=== PATIENT | male | born 1945 | race Caucasian/White ===

== ENCOUNTER 2021-09-18 09:44 | Outpatient (CLI) | payer MEDICARE, OTHER ==
[2021-09-18] MEDS ORDERED: Magnevist 469MG/ML 20 ML VIAL ONE (10:28)
== END 2021-09-18 09:45 | disposition home or self-care (01) ==
LOC: CSHSPEC 09:44
PROVIDERS: ATTEND Family Medicine
DX: M47.27 Other spondylosis with radiculopathy, lumbosacral region (principal); M47.816 Spondylosis without myelopathy or radiculopathy, lumbar region; M48.061 Spinal stenosis, lumbar region without neurogenic claudication; Z95.9 Presence of cardiac and vascular implant and graft, unspecified
CPT/HCPCS: 71045; 72158; 82565; A9579

== ENCOUNTER 2021-09-25 12:07 | Outpatient (CLI) | payer MEDICARE, OTHER | END 2021-09-25 12:08 | disposition home or self-care (01) | LOC: CSHULT 12:07 | PROVIDERS: ATTEND Otolaryngology Plastic Surgery within the Head & Neck | DX: E04.1 Nontoxic single thyroid nodule (principal); E07.9 Disorder of thyroid, unspecified | CPT/HCPCS: 76536 ==

== ENCOUNTER 2022-10-06 08:09 | Outpatient (CLI) | payer MEDICARE, OTHER ==
[2022-10-06 09:23] LABS: Hematocrit 40.7 % (38.8-50.0); Hemoglobin 13.8 g/dL (13.5-17.5); Mean Corpuscular HGB CONC 33.9 g/dL (32.0-36.0); Mean Corpuscular Hemoglobin 31.4 pg (27.0-33.0); Mean Corpuscular Volume 92.7 fl (81.2-95.1); Mean Platelet Volume 9.6 fl (7.4-10.4); Platelet Count 189 10x3/uL (150-450); RBC Distribution Width 13.6 % (11.5-14.5); Red Blood Cell (RBC) Count 4.39 10x6/uL (4.32-5.72)
[2022-10-06 09:55] LABS: Anion Gap 16 mmol/L (10-20); BUN (Urea Nitrogen) 18 mg/dL (8.4-25.7); Calc. Creatinine Clearance 0 mL/min (70-130); Carbon Dioxide 21 mmol/L (23-31); Chloride 109 mmol/L (98-107); Estimated GFR 74; Glucose 57 mg/dL (83-110); Potassium 4.4 mmol/L (3.5-5.1); Sodium 142 mmol/L (136-145)
== END 2022-10-06 08:10 | disposition home or self-care (01) ==
LOC: CSHLAB 08:09
PROVIDERS: ATTEND Otolaryngology Plastic Surgery within the Head & Neck
DX: Z01.812 Encounter for preprocedural laboratory examination (principal); E07.89 Other specified disorders of thyroid; J38.01 Paralysis of vocal cords and larynx, unilateral
CPT/HCPCS: 80048; 85027

== ENCOUNTER 2022-10-11 05:39 | Observation (INO) | payer MEDICARE, OTHER ==
[2022-10-06 08:57] VITALS: BMI 34.2
[2022-10-11] MEDS ORDERED: CEFAZOLIN 2 GM VIAL ONE (06:19)
[2022-10-11] MEDS ORDERED: Lidocaine 1% w/Epinephrine 1:100K 20 ML VIAL ONE (06:21)
[2022-10-11] MEDS ORDERED: Dexmedetomidine 200 MCG/2 ML VIAL ONE (06:25)
[2022-10-11] MEDS ORDERED: Famotidine/PF 20 mg/2ml Vial ONE (06:25)
[2022-10-11] MEDS ORDERED: SUGAMMADEX SODIUM 200 MG/2 ML VIAL ONE (06:25)
[2022-10-11] MEDS ORDERED: MINERAL OIL/WHITE PETROLATUM 3.5 GM TUBE ONE (06:32)
[2022-10-11] MEDS ORDERED: PROPOFOL 20 ML ONE (06:33)
[2022-10-11] MEDS ORDERED: fentaNYL 50 mcg/mL 1 mL Vial ONE (06:33)
[2022-10-11] MEDS ORDERED: Lidocaine 1% PF 5 ML VIAL ONE (06:36)
[2022-10-11] MEDS ORDERED: Rocuronium Bromide 10 MG/ML (10ML VIAL) ONE (06:36)
[2022-10-11] MEDS ORDERED: ePHEDrine Sulfate 50 MG/10 ML VIAL ONE (07:26)
[2022-10-11] MEDS ORDERED: Phenylephrine 10 MG/ML VIAL ONE (07:44)
[2022-10-11] MEDS ORDERED: KETAMINE 100 MG/ML (5ML VIAL) ONE (07:44)
[2022-10-11] MEDS ORDERED: Norepinephrine 4 MG/4 ML VIAL ONE (07:45)
[2022-10-11] MEDS ORDERED: Acetaminophen 325 MG TAB PO PRN (09:49)
[2022-10-11] MEDS ORDERED: HYDROcodone/Acetaminophen 7.5/325 mg Tablet PO PRN (09:49)
[2022-10-11] MEDS ORDERED: Ondansetron PF 4 MG/2 ML Vial IVP PRN (09:49)
[2022-10-11] MEDS ORDERED: Glucagon 1 MG/ML KIT IM PRN (11:45)
[2022-10-11] MEDS ORDERED: Dextrose 5% in Water 1,000 ML IV PRN (11:45)
[2022-10-11] MEDS ORDERED: Dextrose 50% Abboject 50 ML SYRINGE IVP PRN (11:45)
[2022-10-11] MEDS ORDERED: OMEGA ACID ETHYL ESTERS PO SCH (12:00)
[2022-10-11] MEDS ORDERED: Morphine 4 MG/ML VIAL SLOW IVP PRN (15:02)
[2022-10-11] MEDS: Carvedilol 25 MG TAB PO SCH (20:56)
[2022-10-11] MEDS: Sacubitril 49 MG/Valsartan 51 MG TABLET PO SCH (20:57)
[2022-10-11] MEDS ORDERED: Rosuvastatin 10 MG TAB PO SCH (21:00)
[2022-10-11] MEDS ORDERED: HumuLIN 70/30 (300 UNITS/3 ML VIAL) SC SCH (21:00)
[2022-10-11] MEDS ORDERED: Aspirin 81 mg Enteric Coated Tablet PO SCH (21:00)
[2022-10-11] MEDS: HumaLOG 300 UNITS/3 ML VIAL SC PRN (21:07)
[2022-10-11] MEDS: HYDROcodone/Acetaminophen 5/325 mg Tablet PO PRN (21:08)
[2022-10-12] MEDS: HYDROcodone/Acetaminophen 5/325 mg Tablet PO PRN (03:01)
[2022-10-12] MEDS: HumaLOG 300 UNITS/3 ML VIAL SC PRN (05:36)
[2022-10-12] MEDS ORDERED: Levothyroxine Sodium 100 MCG TAB PO SCH (06:00)
[2022-10-12] MEDS ORDERED: Dexamethasone 20 MG/5 ML VIAL SLOW IVP ONE (06:00)
[2022-10-12] MEDS ORDERED: Dexamethasone 20 MG, Admixture Fee 1 EACH in Sodium Chloride 0.9% 50 ML IVPB SCH (06:00)
[2022-10-12] MEDS ORDERED: Cholecalciferol 1,000 UNITS (25 MCG) TAB PO SCH (09:00)
[2022-10-12] MEDS ORDERED: Multivit, Therapeutic 1 TAB PO SCH (09:00)
[2022-10-12] MEDS ORDERED: Oxybutynin ER 5 MG TAB PO SCH (09:00)
[2022-10-12 09:42] VITALS: BP 129/60; TEMP 98.2
[2022-10-12] MEDS: Sacubitril 49 MG/Valsartan 51 MG TABLET PO SCH ×2 (10:20→10:21)
[2022-10-12] MEDS: Carvedilol 25 MG TAB PO SCH (10:21)
== END 2022-10-12 10:40 | disposition home or self-care (01) ==
LOC: CSHSDC 05:39 → CSHTELE 12:02
PROVIDERS: ADMIT Otolaryngology Plastic Surgery within the Head & Neck; ATTEND Otolaryngology Plastic Surgery within the Head & Neck
PROC: 0GTG0ZZ Resection of Left Thyroid Gland Lobe, Open Approach (ICD-10-PCS; principal; 2022-10-11)
DX: E07.9 Disorder of thyroid, unspecified (principal); J38.00 Paralysis of vocal cords and larynx, unspecified; H26.9 Unspecified cataract; G47.30 Sleep apnea, unspecified; I25.10 Atherosclerotic heart disease of native coronary artery without angina pectoris; I25.2 Old myocardial infarction; E11.9 Type 2 diabetes mellitus without complications; Z79.01 Long term (current) use of anticoagulants; Z79.890 Hormone replacement therapy; Z79.82 Long term (current) use of aspirin; Z79.899 Other long term (current) drug therapy; Z79.02 Long term (current) use of antithrombotics/antiplatelets; Z79.4 Long term (current) use of insulin; Z95.1 Presence of aortocoronary bypass graft; Z95.0 Presence of cardiac pacemaker
CPT/HCPCS: 60220; 82962 ×2; 94760 ×2; J3010; 36416; 88307; 88311; 88331; 88332; 88341; 88342; J1100; J1815; J2270; J2370; J2704; S0028

== ENCOUNTER 2022-10-19 08:31 | Inpatient (IN) | payer MEDICARE, OTHER ==
[2022-10-19 09:44] LABS: #Eosinphils 0.2 10x3/uL (0.0-0.5); #Monocytes 1.4 10x3/uL (0.0-1.1); #Neutrophils 4.7 10x3/uL (1.5-8.4); %Basophils 0.1 % (0.0-2.0); %Eosinophils 2.1 % (0.0-6.0); %Lymphocytes 24.7 % (18.0-47.0); %Monocytes 16.3 % (0.0-10.0); %Neutrophils 56.3 % (40.0-75.0); Hematocrit 40.2 % (38.8-50.0); Hemoglobin 13.4 g/dL (13.5-17.5); Mean Corpuscular HGB CONC 33.3 g/dL (32.0-36.0); Mean Corpuscular Hemoglobin 31.1 pg (27.0-33.0); Mean Corpuscular Volume 93.3 fl (81.2-95.1); Mean Platelet Volume 9.4 fl (7.4-10.4); Platelet Count 221 10x3/uL (150-450); RBC Distribution Width 13.7 % (11.5-14.5); Red Blood Cell (RBC) Count 4.31 10x6/uL (4.32-5.72); White Blood Cell (WBC) Count 8.4 10x3/uL (3.5-10.5)
[2022-10-19 09:54] LABS: PTT 24.5 sec (22.0-33.0); Prothrombin Time 10.9 sec (9.5-12.1)
[2022-10-19 10:16] LABS: ALT (SGPT) 89 U/L (8-55); AST (SGOT) 59 U/L (5-34); Albumin 3.8 g/dL (3.4-4.8); Alkaline Phosphatase 60 U/L (40-110); Anion Gap 13 mmol/L (10-20); BUN (Urea Nitrogen) 34 mg/dL (8.4-25.7); Bilirubin, Total 0.9 mg/dL (0.2-1.2); Calc. Creatinine Clearance 0 mL/min (70-130); Calcium 8.9 mg/dL (7.8-10.44); Carbon Dioxide 24 mmol/L (23-31); Chloride 107 mmol/L (98-107); Estimated GFR 72; Globulin 2.8 g/dL (2.4-3.5); Potassium 4.4 mmol/L (3.5-5.1); Protein, Total 6.6 g/dL (5.8-8.1); Sodium 140 mmol/L (136-145)
[2022-10-19 10:25] LABS: Glucose 48 mg/dL (83-110)
[2022-10-19] MEDS ORDERED: Ampicillin/Sulbactam 3 GM in Sodium Chloride 0.9% 100 ML IVPB SCH (10:30)
[2022-10-19] MEDS ORDERED: Dextrose 50% Abboject 50 ML SYRINGE ONE (10:52)
[2022-10-19] MEDS ORDERED: Dextrose 5% in Water 1,000 ML IV PRN (11:22)
[2022-10-19] MEDS ORDERED: Dextrose 50% Abboject 50 ML SYRINGE SLOW IVP PRN (11:22)
[2022-10-19] MEDS ORDERED: Ondansetron ODT 4 MG TAB PO PRN (11:22)
[2022-10-19] MEDS ORDERED: Acetaminophen 325 MG TAB PO PRN (11:22)
[2022-10-19] MEDS ORDERED: Glucagon 1 MG/ML KIT IM PRN (11:22)
[2022-10-19 15:48] VITALS: BMI 33.3
[2022-10-19] MEDS: Ampicillin/Sulbactam 1.5 GM in Sodium Chloride 0.9% 100 ML IVPB SCH ×2 (18:11→23:16)
[2022-10-19] MEDS ORDERED: Dextrose 5 %-0.45 % NaCl 1,000 ML IV SCH (22:30)
[2022-10-19] MEDS ORDERED: Morphine 2 MG/ML VIAL SLOW IVP SCH (23:30)
[2022-10-20 04:30] LABS: #Eosinphils 0.3 10x3/uL (0.0-0.5); #Monocytes 1.2 10x3/uL (0.0-1.1); #Neutrophils 4.6 10x3/uL (1.5-8.4); %Basophils 0.2 % (0.0-2.0); %Eosinophils 3.7 % (0.0-6.0); %Lymphocytes 26.2 % (18.0-47.0); %Monocytes 14.1 % (0.0-10.0); %Neutrophils 55.2 % (40.0-75.0); Hematocrit 39.1 % (38.8-50.0); Hemoglobin 13.1 g/dL (13.5-17.5); Mean Corpuscular HGB CONC 33.5 g/dL (32.0-36.0); Mean Corpuscular Hemoglobin 31.5 pg (27.0-33.0); Mean Platelet Volume 9.7 fl (7.4-10.4); Platelet Count 174 10x3/uL (150-450); RBC Distribution Width 13.7 % (11.5-14.5); Red Blood Cell (RBC) Count 4.16 10x6/uL (4.32-5.72); White Blood Cell (WBC) Count 8.3 10x3/uL (3.5-10.5)
[2022-10-20 04:40] LABS: Anion Gap 14 mmol/L (10-20); BUN (Urea Nitrogen) 23 mg/dL (8.4-25.7); Calc. Creatinine Clearance 88 mL/min (70-130); Calcium 8.6 mg/dL (7.8-10.44); Carbon Dioxide 23 mmol/L (23-31); Chloride 105 mmol/L (98-107); Estimated GFR 77; Glucose 135 mg/dL (83-110); Potassium 4.6 mmol/L (3.5-5.1); Sodium 137 mmol/L (136-145)
[2022-10-20] MEDS: Ampicillin/Sulbactam 1.5 GM in Sodium Chloride 0.9% 100 ML IVPB SCH ×4 (05:57→23:53)
[2022-10-20] MEDS: Levothyroxine Sodium 100 MCG TAB PO SCH (09:16)
[2022-10-20] MEDS: Lansoprazole 3 MG/ML ORAL SUSPENSION PER TUBE SCH (09:16)
[2022-10-20] MEDS: Carvedilol 3.125 MG TAB PO SCH ×2 (09:16→16:57)
[2022-10-20] MEDS ORDERED: Lantus 1000 UNITS/10 ML VIAL SC SCH (21:00)
[2022-10-20] MEDS: Tamsulosin HCl 0.4 MG CAP PO SCH (21:58)
[2022-10-20] MEDS: Oxybutynin 5 MG TAB PER TUBE SCH (21:58)
[2022-10-21] MEDS: Ampicillin/Sulbactam 1.5 GM in Sodium Chloride 0.9% 100 ML IVPB SCH (05:19)
[2022-10-21] MEDS: Lantus 1000 UNITS/10 ML VIAL SC SCH ×2 (09:21→20:34)
[2022-10-21] MEDS ORDERED: Meropenem 1 GM in Sodium Chloride 0.9% 100 ML IVPB SCH (12:00)
[2022-10-21] MEDS: Levothyroxine Sodium 100 MCG TAB PO SCH (12:19)
[2022-10-21] MEDS: Carvedilol 3.125 MG TAB PO SCH ×2 (12:19→16:50)
[2022-10-21] MEDS: Lansoprazole 3 MG/ML ORAL SUSPENSION PER TUBE SCH (12:20)
[2022-10-21] MEDS: Oxybutynin 5 MG TAB PER TUBE SCH ×2 (12:20→20:35)
[2022-10-21] MEDS: Meropenem 1 GM in Sodium Chloride 0.9% 100 ML IVPB SCH (20:33)
[2022-10-21] MEDS: Tamsulosin HCl 0.4 MG CAP PO SCH (20:35)
[2022-10-21] MEDS ORDERED: Melatonin 3 MG TAB PO SCH (23:00)
[2022-10-22] MEDS: Meropenem 1 GM in Sodium Chloride 0.9% 100 ML IVPB SCH ×2 (04:58→11:30)
[2022-10-22 08:03] LABS: #Eosinphils 0.2 10x3/uL (0.0-0.5); #Monocytes 0.9 10x3/uL (0.0-1.1); %Basophils 0.4 % (0.0-2.0); %Eosinophils 1.9 % (0.0-6.0); %Lymphocytes 17.2 % (18.0-47.0); %Monocytes 7.7 % (0.0-10.0); %Neutrophils 71.7 % (40.0-75.0); Hematocrit 40.3 % (38.8-50.0); Hemoglobin 13.4 g/dL (13.5-17.5); Mean Corpuscular HGB CONC 33.3 g/dL (32.0-36.0); Mean Corpuscular Hemoglobin 31.2 pg (27.0-33.0); Mean Corpuscular Volume 93.7 fl (81.2-95.1); Mean Platelet Volume 9.4 fl (7.4-10.4); Platelet Count 188 10x3/uL (150-450); RBC Distribution Width 13.4 % (11.5-14.5); White Blood Cell (WBC) Count 11.1 10x3/uL (3.5-10.5)
[2022-10-22] MEDS: Lantus 1000 UNITS/10 ML VIAL SC SCH (08:40)
[2022-10-22] MEDS: Oxybutynin 5 MG TAB PER TUBE SCH ×2 (08:47→22:22)
[2022-10-22] MEDS: Levothyroxine Sodium 100 MCG TAB PO SCH (08:47)
[2022-10-22] MEDS: Lansoprazole 3 MG/ML ORAL SUSPENSION PER TUBE SCH (08:47)
[2022-10-22] MEDS: Carvedilol 3.125 MG TAB PO SCH ×2 (08:47→16:19)
[2022-10-22 09:15] LABS: ALT (SGPT) 46 U/L (8-55); AST (SGOT) 23 U/L (5-34); Albumin 3.6 g/dL (3.4-4.8); Alkaline Phosphatase 68 U/L (40-110); Anion Gap 17 mmol/L (10-20); BUN (Urea Nitrogen) 18 mg/dL (8.4-25.7); Bilirubin, Total 0.9 mg/dL (0.2-1.2); Calc. Creatinine Clearance 83 mL/min (70-130); Calcium 8.8 mg/dL (7.8-10.44); Carbon Dioxide 20 mmol/L (23-31); Chloride 104 mmol/L (98-107); Estimated GFR 73; Globulin 2.8 g/dL (2.4-3.5); Glucose 181 mg/dL (83-110); Potassium 4.4 mmol/L (3.5-5.1); Protein, Total 6.4 g/dL (5.8-8.1); Sodium 137 mmol/L (136-145)
[2022-10-22] MEDS ORDERED: Lidocaine 1% w/Epinephrine 1:100K 20 ML VIAL ONE (13:29)
[2022-10-22] MEDS ORDERED: Fentanyl 250 MCG/5 ML VIAL ONE (15:28)
[2022-10-22] MEDS ORDERED: SUGAMMADEX SODIUM 200 MG/2 ML VIAL ONE (15:28)
[2022-10-22] MEDS ORDERED: PROPOFOL 20 ML ONE (15:47)
[2022-10-22] MEDS ORDERED: Lidocaine 1% PF 5 ML VIAL ONE (15:49)
[2022-10-22] MEDS ORDERED: Ondansetron PF 4 MG/2 ML Vial ONE (15:49)
[2022-10-22] MEDS ORDERED: Dexamethasone 4 mg/ml Vial ONE (15:49)
[2022-10-22] MEDS ORDERED: Rocuronium Bromide 10 MG/ML (10ML VIAL) ONE (15:49)
[2022-10-22] MEDS ORDERED: PHENYLEPHRINE-NS 100 MCG/ML 10 ML SYRINGE ONE (15:52)
[2022-10-22] MEDS ORDERED: Vancomycin 1 GM VIAL ONE (17:26)
[2022-10-22] MEDS ORDERED: Bupivacaine PF 0.5% 30 ML VIAL ONE (18:54)
[2022-10-22] MEDS ORDERED: EPINEPHrine 1 MG/ML VIAL ONE (18:54)
[2022-10-22] MEDS ORDERED: Piperacillin/Tazobactam 3.375 GM in Sodium Chloride 0.9% 100 ML IVPB SCH ×3 (20:00→23:59)
[2022-10-22] MEDS: Tamsulosin HCl 0.4 MG CAP PO SCH (22:22)
[2022-10-22] MEDS ORDERED: Artificial Tear Sol 15 ML BOT L EYE PRN (22:38)
[2022-10-23] MEDS ORDERED: Piperacillin/Tazobactam 3.375 GM in Sodium Chloride 0.9% 100 ML IVPB SCH (00:01)
[2022-10-23] MEDS: Lantus 1000 UNITS/10 ML VIAL SC SCH ×3 (00:16→21:51)
[2022-10-23] MEDS ORDERED: Morphine 2 MG/ML VIAL SLOW IVP SCH (02:00)
[2022-10-23] MEDS: Piperacillin/Tazobactam 3.375 GM in Sodium Chloride 0.9% 100 ML IVPB SCH ×3 (02:09→16:24)
[2022-10-23 05:33] LABS: #Basophils 0.1 10x3/uL (0.0-0.2); #Monocytes 0.4 10x3/uL (0.0-1.1); #Neutrophils 11.3 10x3/uL (1.5-8.4); %Basophils 0.4 % (0.0-2.0); %Lymphocytes 9.4 % (18.0-47.0); %Neutrophils 86.2 % (40.0-75.0); Hemoglobin 13.4 g/dL (13.5-17.5); Mean Corpuscular HGB CONC 33.5 g/dL (32.0-36.0); Mean Corpuscular Hemoglobin 30.7 pg (27.0-33.0); Mean Corpuscular Volume 91.7 fl (81.2-95.1); Mean Platelet Volume 9.3 fl (7.4-10.4); Platelet Count 199 10x3/uL (150-450); RBC Distribution Width 13.2 % (11.5-14.5); Red Blood Cell (RBC) Count 4.36 10x6/uL (4.32-5.72)
[2022-10-23 05:47] LABS: Anion Gap 18 mmol/L (10-20); BUN (Urea Nitrogen) 19 mg/dL (8.4-25.7); Calc. Creatinine Clearance 88 mL/min (70-130); Calcium 8.7 mg/dL (7.8-10.44); Carbon Dioxide 20 mmol/L (23-31); Chloride 105 mmol/L (98-107); Estimated GFR 77; Glucose 191 mg/dL (83-110); Potassium 4.9 mmol/L (3.5-5.1); Sodium 138 mmol/L (136-145)
[2022-10-23] MEDS: Levothyroxine Sodium 100 MCG TAB PO SCH (08:39)
[2022-10-23] MEDS: Oxybutynin 5 MG TAB PER TUBE SCH ×2 (08:39→21:51)
[2022-10-23] MEDS: Carvedilol 3.125 MG TAB PO SCH ×2 (08:39→16:24)
[2022-10-23] MEDS: Lansoprazole 3 MG/ML ORAL SUSPENSION PER TUBE SCH (08:39)
[2022-10-23] MEDS: Morphine 2 MG/ML VIAL SLOW IVP PRN ×3 (08:43→21:52)
[2022-10-23] MEDS: Insulin Regular 300 UNITS/3 ML VIAL SC PRN (16:36)
[2022-10-23] MEDS: Tamsulosin HCl 0.4 MG CAP PO SCH (21:51)
[2022-10-24] MEDS: Piperacillin/Tazobactam 3.375 GM in Sodium Chloride 0.9% 100 ML IVPB SCH ×3 (02:57→15:56)
[2022-10-24] MEDS: Morphine 2 MG/ML VIAL SLOW IVP PRN ×2 (03:07→08:05)
[2022-10-24 05:26] LABS: #Basophils 0.1 10x3/uL (0.0-0.2); #Eosinphils 0.2 10x3/uL (0.0-0.5); #Neutrophils 7.5 10x3/uL (1.5-8.4); %Basophils 0.4 % (0.0-2.0); %Lymphocytes 25.7 % (18.0-47.0); %Monocytes 8.5 % (0.0-10.0); %Neutrophils 62.1 % (40.0-75.0); Hematocrit 38.7 % (38.8-50.0); Mean Corpuscular HGB CONC 33.6 g/dL (32.0-36.0); Mean Corpuscular Hemoglobin 31.4 pg (27.0-33.0); Mean Corpuscular Volume 93.5 fl (81.2-95.1); Mean Platelet Volume 9.6 fl (7.4-10.4); Platelet Count 195 10x3/uL (150-450); RBC Distribution Width 13.3 % (11.5-14.5); Red Blood Cell (RBC) Count 4.14 10x6/uL (4.32-5.72); White Blood Cell (WBC) Count 12.1 10x3/uL (3.5-10.5)
[2022-10-24 05:36] LABS: Anion Gap 15 mmol/L (10-20); BUN (Urea Nitrogen) 25 mg/dL (8.4-25.7); Calc. Creatinine Clearance 88 mL/min (70-130); Calcium 8.4 mg/dL (7.8-10.44); Carbon Dioxide 23 mmol/L (23-31); Chloride 106 mmol/L (98-107); Estimated GFR 77; Glucose 243 mg/dL (83-110); Magnesium 2.1 mg/dL (1.6-2.6); Potassium 4.2 mmol/L (3.5-5.1); Sodium 140 mmol/L (136-145)
[2022-10-24] MEDS: Insulin Regular 300 UNITS/3 ML VIAL SC PRN ×3 (06:31→16:03)
[2022-10-24] MEDS: Lantus 1000 UNITS/10 ML VIAL SC SCH (07:51)
[2022-10-24] MEDS: Oxybutynin 5 MG TAB PER TUBE SCH ×2 (07:51→21:06)
[2022-10-24] MEDS: Carvedilol 3.125 MG TAB PO SCH ×2 (07:51→15:56)
[2022-10-24] MEDS: Levothyroxine Sodium 100 MCG TAB PO SCH (07:51)
[2022-10-24] MEDS: Lansoprazole 3 MG/ML ORAL SUSPENSION PER TUBE SCH (07:54)
[2022-10-24] MEDS: HYDROcodone/Acetaminophen 5/325 mg Tablet PER TUBE PRN ×2 (15:55→21:05)
[2022-10-24] MEDS ORDERED: Aspirin 81 mg Enteric Coated Tablet PO SCH (21:00)
[2022-10-24] MEDS: Rosuvastatin 10 MG TAB PER TUBE SCH (21:04)
[2022-10-24] MEDS: Aspirin 81 mg Enteric Coated Tablet PER TUBE SCH (21:06)
[2022-10-24] MEDS: Sacubitril 24MG/Valsartan 26 MG TAB PER TUBE SCH (21:06)
[2022-10-24] MEDS: Tamsulosin HCl 0.4 MG CAP PO SCH (21:07)
[2022-10-24] MEDS: Insulin NPH Human Isophane 100 UNITS/ML (10 ML VIAL) SC SCH (21:15)
[2022-10-25] MEDS: HYDROcodone/Acetaminophen 5/325 mg Tablet PER TUBE PRN ×4 (01:50→23:21)
[2022-10-25] MEDS: Piperacillin/Tazobactam 3.375 GM in Sodium Chloride 0.9% 100 ML IVPB SCH ×2 (01:50→09:47)
[2022-10-25 04:58] LABS: #Basophils 0.1 10x3/uL (0.0-0.2); #Eosinphils 0.3 10x3/uL (0.0-0.5); #Monocytes 0.9 10x3/uL (0.0-1.1); #Neutrophils 7.3 10x3/uL (1.5-8.4); %Basophils 0.5 % (0.0-2.0); %Eosinophils 2.7 % (0.0-6.0); %Monocytes 7.9 % (0.0-10.0); %Neutrophils 62.9 % (40.0-75.0); Hematocrit 38.9 % (38.8-50.0); Mean Corpuscular HGB CONC 33.4 g/dL (32.0-36.0); Mean Corpuscular Hemoglobin 31.3 pg (27.0-33.0); Mean Corpuscular Volume 93.5 fl (81.2-95.1); Mean Platelet Volume 9.4 fl (7.4-10.4); Platelet Count 189 10x3/uL (150-450); RBC Distribution Width 13.2 % (11.5-14.5); Red Blood Cell (RBC) Count 4.16 10x6/uL (4.32-5.72); White Blood Cell (WBC) Count 11.6 10x3/uL (3.5-10.5)
[2022-10-25 05:15] LABS: Anion Gap 15 mmol/L (10-20); BUN (Urea Nitrogen) 20 mg/dL (8.4-25.7); Calc. Creatinine Clearance 98 mL/min (70-130); Calcium 8.6 mg/dL (7.8-10.44); Carbon Dioxide 23 mmol/L (23-31); Chloride 105 mmol/L (98-107); Estimated GFR 87; Glucose 214 mg/dL (83-110); Potassium 4.1 mmol/L (3.5-5.1); Sodium 139 mmol/L (136-145)
[2022-10-25] MEDS: Insulin Regular 300 UNITS/3 ML VIAL SC PRN ×2 (06:18→11:11)
[2022-10-25] MEDS: Carvedilol 3.125 MG TAB PO SCH (08:31)
[2022-10-25] MEDS: Levothyroxine Sodium 100 MCG TAB PO SCH (08:31)
[2022-10-25] MEDS: Lansoprazole 3 MG/ML ORAL SUSPENSION PER TUBE SCH (08:31)
[2022-10-25] MEDS: Sacubitril 24MG/Valsartan 26 MG TAB PER TUBE SCH ×2 (08:31→21:26)
[2022-10-25] MEDS: Cholecalciferol 1,000 UNITS (25 MCG) TAB PER TUBE SCH (08:31)
[2022-10-25] MEDS: Insulin NPH Human Isophane 100 UNITS/ML (10 ML VIAL) SC SCH ×2 (08:31→21:32)
[2022-10-25] MEDS: Oxybutynin 5 MG TAB PER TUBE SCH ×2 (08:31→21:26)
[2022-10-25] MEDS ORDERED: Ciprofloxacin 500 MG TAB PO SCH (20:00)
[2022-10-25] MEDS: Carvedilol 25 MG TAB PER TUBE SCH (21:25)
[2022-10-25] MEDS: Aspirin 81 mg Enteric Coated Tablet PER TUBE SCH (21:26)
[2022-10-25] MEDS: Tamsulosin HCl 0.4 MG CAP PO SCH (21:26)
[2022-10-25] MEDS: Ciprofloxacin 500 MG TAB PER TUBE SCH (21:27)
[2022-10-25] MEDS: Rosuvastatin 10 MG TAB PER TUBE SCH (21:27)
[2022-10-26 05:34] LABS: #Basophils 0.1 10x3/uL (0.0-0.2); #Eosinphils 0.2 10x3/uL (0.0-0.5); #Monocytes 0.9 10x3/uL (0.0-1.1); #Neutrophils 7.4 10x3/uL (1.5-8.4); %Basophils 0.7 % (0.0-2.0); %Eosinophils 1.9 % (0.0-6.0); %Lymphocytes 25.3 % (18.0-47.0); %Monocytes 7.4 % (0.0-10.0); %Neutrophils 63.7 % (40.0-75.0); Hematocrit 43.6 % (38.8-50.0); Hemoglobin 14.4 g/dL (13.5-17.5); Mean Corpuscular Hemoglobin 30.8 pg (27.0-33.0); Mean Corpuscular Volume 93.2 fl (81.2-95.1); Mean Platelet Volume 9.7 fl (7.4-10.4); Platelet Count 227 10x3/uL (150-450); RBC Distribution Width 13.1 % (11.5-14.5); Red Blood Cell (RBC) Count 4.68 10x6/uL (4.32-5.72); White Blood Cell (WBC) Count 11.6 10x3/uL (3.5-10.5)
[2022-10-26 05:45] LABS: Anion Gap 16 mmol/L (10-20); BUN (Urea Nitrogen) 18 mg/dL (8.4-25.7); Calc. Creatinine Clearance 90 mL/min (70-130); Calcium 9.5 mg/dL (7.8-10.44); Carbon Dioxide 25 mmol/L (23-31); Chloride 103 mmol/L (98-107); Estimated GFR 80; Glucose 167 mg/dL (83-110); Magnesium 2.1 mg/dL (1.6-2.6); Potassium 4.3 mmol/L (3.5-5.1); Sodium 140 mmol/L (136-145)
[2022-10-26] MEDS: HYDROcodone/Acetaminophen 5/325 mg Tablet PER TUBE PRN (07:01)
[2022-10-26] MEDS: Ciprofloxacin 500 MG TAB PER TUBE SCH (07:01)
[2022-10-26] MEDS: Cholecalciferol 1,000 UNITS (25 MCG) TAB PER TUBE SCH (11:28)
[2022-10-26] MEDS: Oxybutynin 5 MG TAB PER TUBE SCH (11:28)
[2022-10-26] MEDS: Lansoprazole 3 MG/ML ORAL SUSPENSION PER TUBE SCH (11:28)
[2022-10-26] MEDS: Levothyroxine Sodium 100 MCG TAB PO SCH (11:28)
[2022-10-26] MEDS: Carvedilol 25 MG TAB PER TUBE SCH (11:28)
[2022-10-26] MEDS: Sacubitril 24MG/Valsartan 26 MG TAB PER TUBE SCH (11:29)
[2022-10-26] MEDS: Insulin NPH Human Isophane 100 UNITS/ML (10 ML VIAL) SC SCH (11:29)
[2022-10-26] MEDS: Insulin Regular 300 UNITS/3 ML VIAL SC PRN (14:15)
[2022-10-26 18:45] VITALS: BP 108/52; TEMP 97.9
[2022-10-27] MEDS ORDERED: Omega-3 Acid Ethyl Esters [Lovaza] 1 GM Capsule PER TUBE SCH (12:00)
== END 2022-10-26 18:15 | disposition home health service (06) | DRG 858 ==
LOC: CSHERS 08:31 → CSHTELE 11:10
PROVIDERS: ADMIT Internal Medicine; ATTEND Internal Medicine
PROC: 0DH67UZ Insertion of Feeding Device into Stomach, Via Natural or Artificial Opening (ICD-10-PCS; principal; 2022-10-19)
PROC: 0DQ50ZZ Repair Esophagus, Open Approach (ICD-10-PCS; 2022-10-22)
PROC: 0DH64UZ Insertion of Feeding Device into Stomach, Percutaneous Endoscopic Approach (ICD-10-PCS; 2022-10-22)
DX: T81.49XA Infection following a procedure, other surgical site, initial encounter (principal); I25.10 Atherosclerotic heart disease of native coronary artery without angina pectoris; E11.65 Type 2 diabetes mellitus with hyperglycemia; K22.89 Other specified disease of esophagus; G47.33 Obstructive sleep apnea (adult) (pediatric); D63.1 Anemia in chronic kidney disease; E89.0 Postprocedural hypothyroidism; I10 Essential (primary) hypertension; D72.829 Elevated white blood cell count, unspecified; Z98.890 Other specified postprocedural states; Z79.899 Other long term (current) drug therapy; Z79.82 Long term (current) use of aspirin; Z79.4 Long term (current) use of insulin; Z79.01 Long term (current) use of anticoagulants; Z98.49 Cataract extraction status, unspecified eye; Z95.5 Presence of coronary angioplasty implant and graft; Z95.1 Presence of aortocoronary bypass graft; Z79.890 Hormone replacement therapy; Z82.49 Family history of ischemic heart disease and other diseases of the circulatory system
CPT/HCPCS: 36415; 36416; 44500; 71045; 74018; 74220; 74340; 80048; 80053; 83735; 85025; 85610; 85730; 87070; 87077; 87186; 87205; 93005; 93010; 96365; 97139; C1713; C9250; J0171; J0295; J1100; J1815; J2185; J2272; J2405; J2543; J2704; J3010; J3370; J3490; J7042; J7999; Q0162; S0020

== ENCOUNTER 2022-11-02 10:08 | Outpatient (CLI) | payer MEDICARE, OTHER | END 2022-11-02 10:09 | disposition home or self-care (01) | LOC: CSHRAD 10:08 | PROVIDERS: ATTEND Otolaryngology Plastic Surgery within the Head & Neck | DX: K22.89 Other specified disease of esophagus (principal); J86.0 Pyothorax with fistula | CPT/HCPCS: 74220 ==

== ENCOUNTER 2022-11-17 08:47 | Outpatient (CLI) | payer MEDICARE, OTHER ==
[2022-11-17 11:13] LABS: Hematocrit 41.5 % (38.8-50.0); Hemoglobin 13.6 g/dL (13.5-17.5); Mean Corpuscular HGB CONC 32.8 g/dL (32.0-36.0); Mean Corpuscular Hemoglobin 31.1 pg (27.0-33.0); Mean Corpuscular Volume 94.7 fl (81.2-95.1); Mean Platelet Volume 11.4 fl (7.4-10.4); Platelet Count 200 10x3/uL (150-450); RBC Distribution Width 13.6 % (11.5-14.5); Red Blood Cell (RBC) Count 4.38 10x6/uL (4.32-5.72); White Blood Cell (WBC) Count 10.1 10x3/uL (3.5-10.5)
[2022-11-17 11:38] LABS: Anion Gap 16 mmol/L (10-20); BUN (Urea Nitrogen) 41 mg/dL (8.4-25.7); Calc. Creatinine Clearance 0 mL/min (70-130); Calcium 9.1 mg/dL (7.8-10.44); Carbon Dioxide 24 mmol/L (23-31); Chloride 107 mmol/L (98-107); Estimated GFR 74; Glucose 211 mg/dL (83-110); Potassium 4.6 mmol/L (3.5-5.1); Sodium 142 mmol/L (136-145)
== END 2022-11-17 08:48 | disposition home or self-care (01) ==
LOC: CSHLAB 08:47
PROVIDERS: ATTEND Otolaryngology Plastic Surgery within the Head & Neck
DX: Z01.812 Encounter for preprocedural laboratory examination (principal); E07.9 Disorder of thyroid, unspecified; K22.89 Other specified disease of esophagus; J38.00 Paralysis of vocal cords and larynx, unspecified
CPT/HCPCS: 80048; 85027

== ENCOUNTER 2023-07-29 08:56 | Outpatient (CLI) | payer MEDICARE, OTHER ==
[2023-07-29 11:35] LABS: Hematocrit 43.7 % (38.8-50.0); Hemoglobin 14.7 g/dL (13.5-17.5); Mean Corpuscular HGB CONC 33.6 g/dL (32.0-36.0); Mean Corpuscular Hemoglobin 31.7 pg (27.0-33.0); Mean Corpuscular Volume 94.2 fL (81.2-95.1); Mean Platelet Volume 10.1 fL (7.4-10.4); Platelet Count 216 10x3/uL (150-450); RBC Distribution Width 14.7 % (11.5-14.5); Red Blood Cell (RBC) Count 4.64 10x6/uL (4.32-5.72); White Blood Cell (WBC) Count 8.5 10x3/uL (3.5-10.5)
[2023-07-29 11:48] LABS: Anion Gap 15 mmol/L (10-20); BUN (Urea Nitrogen) 35 mg/dL (8.4-25.7); Calc. Creatinine Clearance 0 mL/min (70-130); Calcium 9.3 mg/dL (7.8-10.44); Carbon Dioxide 25 mmol/L (23-31); Chloride 105 mmol/L (98-107); Estimated GFR 87; Glucose 108 mg/dL (83-110); Potassium 4.4 mmol/L (3.5-5.1); Sodium 141 mmol/L (136-145)
== END 2023-07-29 08:57 | disposition home or self-care (01) ==
LOC: CSHLAB 08:56
PROVIDERS: ATTEND Otolaryngology Plastic Surgery within the Head & Neck
DX: Z01.818 Encounter for other preprocedural examination (principal); J38.01 Paralysis of vocal cords and larynx, unilateral
CPT/HCPCS: 80048; 85027; 93005; 93010

== ENCOUNTER 2023-08-04 05:32 | Day surgery (SDC) | payer MEDICARE, OTHER ==
[2023-07-29 09:47] VITALS: BMI 29.5
[2023-08-04] MEDS ORDERED: EPINEPHrine 1 MG/ML VIAL ONE (09:30)
[2023-08-04] MEDS ORDERED: Propofol 1,000 MG/100 ML VIAL IV ONE (09:36)
[2023-08-04] MEDS ORDERED: Ondansetron PF 4 MG/2 ML Vial ONE (09:48)
[2023-08-04] MEDS ORDERED: Dexamethasone 20 MG/5 ML VIAL ONE (09:48)
[2023-08-04] MEDS ORDERED: Lidocaine 1% PF 5 ML VIAL ONE (09:48)
[2023-08-04] MEDS ORDERED: PROPOFOL 20 ML ONE (09:48)
[2023-08-04] MEDS ORDERED: fentaNYL 50 mcg/mL 1 mL Vial ONE (09:48)
[2023-08-04] MEDS ORDERED: ePHEDrine Sulfate 50 MG/10 ML VIAL ONE (09:50)
[2023-08-04] MEDS ORDERED: PHENYLEPHRINE-NS 100 MCG/ML 10 ML SYRINGE ONE (09:50)
[2023-08-04] MEDS ORDERED: MINERAL OIL/WHITE PETROLATUM 3.5 GM TUBE ONE (09:58)
[2023-08-04] MEDS ORDERED: Triamcinolone 40 MG/ML VIAL ONE (10:00)
== END 2023-08-04 12:35 | disposition home or self-care (01) ==
LOC: CSHSDC 05:32
PROVIDERS: ATTEND Otolaryngology Plastic Surgery within the Head & Neck
PROC: 3E0F8GC Introduction of Other Therapeutic Substance into Respiratory Tract, Via Natural or Artificial Opening Endoscopic (ICD-10-PCS; principal; 2023-08-04)
DX: J38.01 Paralysis of vocal cords and larynx, unilateral (principal); E11.9 Type 2 diabetes mellitus without complications; I25.2 Old myocardial infarction; G47.33 Obstructive sleep apnea (adult) (pediatric); E78.5 Hyperlipidemia, unspecified; I11.0 Hypertensive heart disease with heart failure; I50.9 Heart failure, unspecified; Z79.4 Long term (current) use of insulin; Z79.84 Long term (current) use of oral hypoglycemic drugs; Z79.890 Hormone replacement therapy; Z79.899 Other long term (current) drug therapy; Z79.82 Long term (current) use of aspirin; Z95.810 Presence of automatic (implantable) cardiac defibrillator; E89.0 Postprocedural hypothyroidism; Z90.89 Acquired absence of other organs; Z98.890 Other specified postprocedural states
CPT/HCPCS: 31571; J0171; J1100; J2405; J2704 ×2; J3010; L8607; J3301